=== PATIENT | female | born 1935 | race Caucasian/White ===

== ENCOUNTER → 2016-10-18 | Outpatient (CLI) | payer MEDICARE, BC, OTHER ==
--- NOTE | 2016-10-18 10:54 | PFTRPT ---
Tech: Danielle KIRKLAND RRT Age: 81 Sex: Female Race: Height: 58.50 Inches Weight: 149.00 Lbs BSA: 1.62 Diagnosis: R91.1 PULMONARY FUNCTION REPORT ORDERING PROVIDER: Balbir Weber MD DATE OF SERVICE: 10/18/16 SPIROMETRY: Pre and post bronchodilator study of excellent technical quality. The forced vital capacity is normal. The FEV1 is in proportion. The obstructive index is, therefore, normal. FLOW VOLUME LOOP: The expiratory limb of the flow volume loop is normal. No significant bronchodilator response is identified. LUNG VOLUMES: The total lung capacity is normal. The residual volume is generally in proportion. DIFFUSION CAPACITY: The diffusion capacity, although reduced, is appropriate for alveolar volume. HEMOGLOBIN: The hemoglobin is acceptable at 14.1. AIRWAY MECHANICS: Airways resistance and conductance are normal. IMPRESSION: Minimal reduction in the absolute diffusion capacity; otherwise, normal study. Please correlate clinically. MTDD
== END ==
LOC: M CARPUL 09:00
PROVIDERS: ATTEND Thoracic Surgery (Cardiothoracic Vascular Surgery)
DX: R91.1 Solitary pulmonary nodule (principal)

== ENCOUNTER 2017-03-14 10:19 | Day surgery (SDC) | payer MEDICARE, BC, OTHER ==
[~2017-03-14 10:19] MED LIST: METOCLOPRAMIDE INJ 10MG/2ML VIAL (J2765) As Ordered; fentaNYL 100 MCG/2 ML INJECTION (J3010) As Ordered
[2017-03-14] MEDS ORDERED: LR 1,000 ML IV ×2 (11:15→13:15)
[2017-03-14] MEDS ORDERED: PROPOFOL 200 MG/20 ML VIAL As Ordered (11:37)
[2017-03-14] MEDS ORDERED: ROCURONIUM BROMIDE 50 MG/5 ML VIAL As Ordered (11:37)
[2017-03-14] MEDS ORDERED: ePHEDrine SULFATE 25 MG/5 ML(5MG/ML) SYRINGE As Ordered (12:06)
[2017-03-14] MEDS ORDERED: PHENYLephrine HCL 500 MCG/5 ML (100MCG/ML) SYRINGE (J2370) As Ordered (12:07)
[2017-03-14] MEDS: CETACAINE SPRAY 5GM As Ordered (12:08)
[2017-03-14] MEDS ORDERED: NEOSTIGMINE 10 MG/10 ML VIAL (J2710) As Ordered (12:12)
[2017-03-14] MEDS ORDERED: GLYCOPYRROLATE INJ 0.2 MG/ML 2 ML VIAL As Ordered ×2 (12:12)
[2017-03-14] MEDS ORDERED: ONDANSETRON 4MG/2ML VIAL (J2405) As Ordered (12:14)
[2017-03-14] MEDS: EPINEPHrine 1MG/10ML SYRINGE 1.5IN As Ordered (13:05)
[2017-03-14] MEDS: THROMBIN SOLN 5,000 UNITS VIAL As Ordered (13:06)
[2017-03-14] MEDS: LIDOCAINE 1% MDV 20ML VIAL As Ordered (13:06)
[2017-03-14] MEDS: LIDOCAINE 4% TOPICAL SOLN 50 ML BTL As Ordered (13:07)
[2017-03-14] MEDS: LIDOCAINE VISCOUS 2% SOLN 15ML UDC As Ordered (13:07)
[2017-03-14] MEDS ORDERED: ONDANSETRON 4MG/2ML VIAL (J2405) IV (13:15)
[2017-03-14] MEDS ORDERED: METOCLOPRAMIDE INJ 10MG/2ML VIAL (J2765) IV (13:15)
[2017-03-14] MEDS ORDERED: PERCOCET 5MG/325MG TAB PO (13:15)
[2017-03-14] MEDS ORDERED: fentaNYL 100 MCG/2 ML INJECTION (J3010) IV (13:15)
== END 2017-03-14 15:45 | disposition home or self-care (01) ==
LOC: M SDC 10:19
DX: R91.8 Other nonspecific abnormal finding of lung field (principal); R91.1 Solitary pulmonary nodule; F41.9 Anxiety disorder, unspecified; M12.9 Arthropathy, unspecified; E78.00 Pure hypercholesterolemia, unspecified; I10 Essential (primary) hypertension; I25.10 Atherosclerotic heart disease of native coronary artery without angina pectoris; J43.9 Emphysema, unspecified; R60.0 Localized edema; Z79.899 Other long term (current) drug therapy; Z79.82 Long term (current) use of aspirin; Z95.828 Presence of other vascular implants and grafts; Z87.891 Personal history of nicotine dependence; Z96.1 Presence of intraocular lens; Z87.81 Personal history of (healed) traumatic fracture; Z90.710 Acquired absence of both cervix and uterus
CPT/HCPCS: 31623

== ENCOUNTER → 2017-07-04 | Outpatient (CLI) | payer MEDICARE, BC, OTHER ==
[2017-07-04 17:35] LABS: INR 0.95; PROTHROMBIN TIME 12.8 SECONDS (12.4-14.5)
[2017-07-04 17:36] LABS: PARTIAL THROMBOPLASTIN TIME 29.6 SECONDS (26.8-37.9)
== END ==
LOC: M SMT 13:04
DX: R91.1 Solitary pulmonary nodule (principal); Z79.01 Long term (current) use of anticoagulants
CPT/HCPCS: 85610

== ENCOUNTER → 2017-07-26 | Outpatient (CLI) | payer MEDICARE, BC, OTHER ==
[~2017-07-26] MED LIST changes: +ACETAMINOPHEN 325 MG TAB As Ordered; +LIDOCAINE 1% MDV 20ML VIAL As Ordered; -METOCLOPRAMIDE INJ 10MG/2ML VIAL (J2765) As Ordered; -fentaNYL 100 MCG/2 ML INJECTION (J3010) As Ordered
== END ==
LOC: M RADPRO 08:15
DX: C34.90 Malignant neoplasm of unspecified part of unspecified bronchus or lung (principal); R91.1 Solitary pulmonary nodule; Z95.1 Presence of aortocoronary bypass graft; Z79.82 Long term (current) use of aspirin; Z79.899 Other long term (current) drug therapy
CPT/HCPCS: 32405